=== PATIENT | male | born 1985 | race Caucasian/White ===

== ENCOUNTER → 2017-09-23 14:35 | Outpatient (CLI) | payer OTHER, SELFPAY ==
--- NOTE | 2017-09-23 15:00 | RAD_ITS ---
STUDY: X-RAY - LUMBAR SPINE REASON FOR EXAM: Male, 31 years old. Injury. Pain. TECHNIQUE: 3 view(s) of the lumbar spine were obtained. COMPARISON: None FINDINGS: Normal lumbar lordosis. There is no substantial scoliosis. There is a normal alignment of the vertebrae. Normal vertebral bodies and endplates. Normal disc space heights. There is no demonstrated fracture. The soft tissue structures are unremarkable. RAD/Lumbar Spine 2 or 3 Views IMPRESSION: Normal x-ray examination of the lumbar spine. Electronically Signed: Nic Ruelas MD at 15:55 EDT , Service support ,
== END ==
DX: S33.5XXA Sprain of ligaments of lumbar spine, initial encounter (principal)
CPT/HCPCS: 72100

== ENCOUNTER 2017-11-03 10:11 | Emergency (ER) | payer OTHER, SELFPAY ==
[2017-11-03 10:12] VITALS: BP 127/67; PULSE 56; RESP 26; TEMP 36.7; O2SAT 100; BMI 32.4
--- NOTE | 2017-11-03 10:42 | EKG12_ITS ---
Test Reason : SOB Blood Pressure : / mmHG Vent. Rate : 048 BPM Atrial Rate : 048 BPM P-R Int : 136 ms QRS Dur : 098 ms QT Int : 470 ms P-R-T Axes : 054 054 041 degrees QTc Int : 419 ms Sinus bradycardia Otherwise normal ECG Confirmed by ADOLFO MERRITT, RADHA ([id number]), communications editor VIVIANA CONNORS ([id number] on 11/05/2017 1:39:00 PM Referred By: Subha Rachel Confirmed By:RADHA MATA MD
[2017-11-03 11:07] LABS: Absolute Lymphocyte Count 2.32 X10^3/ul (0.83-4.51); Absolute Neutrophil Count 2.5 X10^3/uL (2.0-7.7); Basophil# 0.03 X10^3/uL; Basophil% 0.6 % (0-1); Eosinophil# 0.07 X10^3/uL; Eosinophils% 1.3 % (0-5); Hematocrit 38.4 % (40-54); Hemoglobin 13.1 g/dl (13.0-16.5); Lymphocyte # 2.32 X10^3/ul (4.0); Lymphocyte % 42.7 % (19-41); Mean Corp Hgb Conc 34.1 g/gl (32-36); Mean Corpuscular Hgb 29.9 pg (27.0-32.0); Mean Corpuscular Volume 87.7 fL (80-94); Mean Platelet Vol. 10.2 fl (6.2-12.0); Monocyte# 0.47 X10^3/uL; Monocyte% 8.7 % (0-10); Neutrophil # 2.53 X10^3/uL (2.7-7.7); Neutrophil % 46.5 % (47-70); Platelet Count 205 K/mm3 (150-450); RBC Distribution Width CV 13.2 % (11.6-14.6); RBC Distribution Width SD 41.9 fl (35.1-43.9); Red Blood Count 4.38 M/mm3 (4.6-6.2); White Blood Count 5.4 K/mm3 (4.4-11.0)
[2017-11-03 11:09] LABS: POSITIVE COUNT NO; POSITIVE DIFFERENTIAL NO; POSITIVE MORPHOLOGY NO
[2017-11-03 11:11] VITALS: PULSE 65; RESP 20
[2017-11-03] MEDS: Albuterol 2.5 MG/3 ML VIAL.NEB. INHALATION (11:11)
[2017-11-03] MEDS: Ipratropium/Albuterol Sulfate 3 ML AMPUL.NEB INHALATION (11:11)
[2017-11-03 11:19] LABS: Anion Gap 9 (5-15); BUN 15 mg/dL (7-18); BUN/Creat Ratio 15.9 RATIO (10-20); Calcium,Total 9.1 mg/dL (8.5-10.1); Chloride 108 mmol/L (98-107); Creatinine, Serum 0.94 mg/dL (0.70-1.30); EST Glomerular Filtration Rate 98 mL/min (>60); Est Glom Filt Rate - Afr Amer 119 mL/min (>60); Estimated Creatinine Clearance 123.83 ml/min; Glucose 87 mg/dL (74-106); Potassium 3.2 mmol/L (3.5-5.1); Sodium Level 141 mmol/L (136-145)
[2017-11-03 11:42] LABS: D-Dimer Quantitative (DVT/PE) < 0.27 FEU/ug/m (0.27-0.49)
[2017-11-03] MEDS: 0.9% Normal Saline 1,000 ML 999 ML IV (11:48)
--- NOTE | 2017-11-03 12:22 | RAD_ITS ---
STUDY: X-RAY CHEST REASON FOR EXAM: Male, 31 years old. Shortness of breath and cough TECHNIQUE: PA and lateral views of the chest. COMPARISON: 03/27/2017 FINDINGS: EKG leads overlie the chest The lungs are clear and expanded. There is no demonstrated pleural abnormality. Normal size heart. Normal mediastinum and niko. Normal visualized pulmonary arteries. Normal visualized aortic arch and descending thoracic aorta. Normal visualized thoracic spine. Normal visualized ribs, clavicles, and shoulders. There is no demonstrated abnormality of the visualized soft tissue structures of the upper abdomen. RAD/Chest PA and Lateral IMPRESSION: Normal x-ray examination of the chest. Electronically Signed: Alex Arriaga MD at 12:52 EDT , Service support ,
--- NOTE | 2017-11-03 13:29 | ED.VISSUMM ---
- ER Visit Summary Date of Service: 11/03/17 Chief Complaint: [Shortness of breath] History of Present Illness: The patient is a 31 M [presents the emergency department with shortness of breath. It started yesterday. He has had a dry cough. No fevers or chills. He has had some body aches. He has felt a little lightheaded. No wheezing. He does have a history of asthma. He has a history of a pituitary adenoma as well as hernia surgery. He has no primary care doctor at this time. He has had similar episodes in the past with humidity but is never been this bad] Physical Examination: [] WN WD NAD PERRL EOMI MMM NECK supple and nontender, no masses RRR no murmur rub or gallop, no peripheral edema, symmetric radial pulses CTAB no respiratory distress ABDOMEN is soft and nontender, normal bowel sounds, no distension, no rebound or guarding SKIN is warm and dry no rashes Alert and Oriented x3, CN II-XII in tact, no motor or sensory deficits, gait normal No lymphadenopathy Test Results: [] Emergency Department Course and Treatment: [EKG is sinus bradycardia at a rate of 48. Chest x-ray is unremarkable screening labs are unremarkable d-dimer is normal. Patient's pulse ox is 99% is in no respiratory distress he has a respiratory rate of 18 on my reevaluation. I think he can safely be discharged home. I will give him prednisone and albuterol to treat possible asthma. He was given precautions for which to return and will follow up with a primary care physician.] Treatment Plan: [] Disposition: [Discharge] Impression: [Dyspnea] This note was generated with [employer] dictation software. It may contain incorrect words, spelling, and punctuation that were not noted in review of the chart prior to signing ED Disposition - Plan for ED Patient: Chief Complaint: Shortness of Breath Referrals: Care Physician,No Primary [Primary Care Provider] -
--- NOTE | 2017-11-03 13:32 | ED.DEP ---
ED Disposition - Plan for ED Patient: Chief Complaint: Shortness of Breath Instructions: ED Dyspnea Shortness of Breath Prescriptions: Albuterol Inhaler [Ventolin Hfa] 1 puff INHALATION Q4H PRN PRN #1 inhaler PRN Reason: Shortness Of Breath Prednisone [Deltasone] 40 mg PO DAILY #10 tablet Referrals: Stevenson Rojas MD [STAFF PHYSICIAN] - 3-5 Days
[2017-11-03 13:44] VITALS: BP 102/76; PULSE 61; RESP 17; O2SAT 97
== END 2017-11-03 13:46 | disposition home or self-care (01) ==
PROVIDERS: Emergency Provider Emergency Medicine
DX: R06.00 Dyspnea, unspecified (principal); M79.1 Myalgia; J45.909 Unspecified asthma, uncomplicated; R00.1 Bradycardia, unspecified
CPT/HCPCS: 71046; 80048; 84484; 85025; 85379; 93005; 94640; 96360; 99284; J7030; A4216

== ENCOUNTER 2017-11-10 13:39 | Emergency (ER) | payer OTHER, SELFPAY ==
[2017-11-10 13:40] VITALS: BP 135/83; PULSE 93; RESP 28; TEMP 36.8; O2SAT 100; BMI 32.5
[2017-11-10 13:50] VITALS: PULSE 75; RESP 16; O2SAT 98
--- NOTE | 2017-11-10 14:03 | EKG12_ITS ---
Test Reason : SOB Blood Pressure : / mmHG Vent. Rate : 063 BPM Atrial Rate : 063 BPM P-R Int : 136 ms QRS Dur : 100 ms QT Int : 442 ms P-R-T Axes : 058 076 052 degrees QTc Int : 452 ms Normal sinus rhythm Normal ECG Confirmed by ADOLFO MERRITT, RADHA ([id number]), city editor VIVIANA CONNORS ([id number]) on 11/11/2017 12:01:34 PM Referred By: ALFONSO Confirmed By:RADHA MATA MD
[2017-11-10 14:13] LABS: Absolute Lymphocyte Count 2.01 X10^3/ul (0.83-4.51); Absolute Neutrophil Count 3.7 X10^3/uL (2.0-7.7); Basophil# 0.05 X10^3/uL; Basophil% 0.8 % (0-1); Eosinophil# 0.06 X10^3/uL; Eosinophils% 0.9 % (0-5); Hematocrit 40.8 % (40-54); Hemoglobin 14.3 g/dl (13.0-16.5); Lymphocyte # 2.01 X10^3/ul (4.0); Lymphocyte % 31.4 % (19-41); Mean Corpuscular Hgb 30.3 pg (27.0-32.0); Mean Corpuscular Volume 86.4 fL (80-94); Mean Platelet Vol. 10.2 fl (6.2-12.0); Monocyte# 0.54 X10^3/uL; Monocyte% 8.4 % (0-10); Neutrophil # 3.74 X10^3/uL (2.7-7.7); Neutrophil % 58.3 % (47-70); Platelet Count 256 K/mm3 (150-450); RBC Distribution Width CV 13.2 % (11.6-14.6); RBC Distribution Width SD 40.7 fl (35.1-43.9); Red Blood Count 4.72 M/mm3 (4.6-6.2); White Blood Count 6.4 K/mm3 (4.4-11.0)
[2017-11-10 14:14] LABS: POSITIVE COUNT NO; POSITIVE DIFFERENTIAL NO; POSITIVE MORPHOLOGY NO
[2017-11-10 14:26] VITALS: O2SAT 98
--- NOTE | 2017-11-10 14:27 | RAD_ITS ---
STUDY: X-RAY CHEST REASON FOR EXAM: Male, 31 years old. Chest pain and shortness of breath. History of asthma. TECHNIQUE: PA and lateral views of the chest. COMPARISON: Comparison is made with prior examination dated November 03, 2017. FINDINGS: EKG electrodes are seen. Hyperinflation. The knot was evidence of focal increased markings in the anterior aspect of the lingular segment of the left upper lobe suggestive of an early infiltrate. There is no demonstrated pleural abnormality. Normal size heart. Normal mediastinum and niko. Normal visualized pulmonary arteries. Normal visualized aortic arch and descending thoracic aorta. Normal visualized thoracic spine. Normal visualized ribs, clavicles, and shoulders. There is no demonstrated abnormality of the visualized soft tissue structures of the upper abdomen. RAD/Chest PA and Lateral IMPRESSION: Findings suggestive of an early infiltrate in the anterior aspect of the lingular segment of the left upper lobe. Electronically Signed: Josue Padilla MD at 14:46 EDT Tel [phone], Service support ,
[2017-11-10 14:29] LABS: Anion Gap 12 (5-15); BUN 13 mg/dL (7-18); Calcium,Total 9.8 mg/dL (8.5-10.1); Chloride 109 mmol/L (98-107); Creatinine, Serum 1.18 mg/dL (0.70-1.30); EST Glomerular Filtration Rate 76 mL/min (>60); Est Glom Filt Rate - Afr Amer 92 mL/min (>60); Estimated Creatinine Clearance 98.64 ml/min; Glucose 88 mg/dL (74-106); Potassium 3.4 mmol/L (3.5-5.1); Sodium Level 140 mmol/L (136-145)
--- NOTE | 2017-11-10 14:40 | ED.VISSUMM ---
- ER Visit Summary Date of Service: 11/10/17 Chief Complaint: Shortness of breath History of Present Illness: The patient is a 31 M who presents with shortness of breath. He initially began to feel short of breath about 1 week ago. He was seen in the emergency department at that time. He had workup including EKG laboratory studies and a chest x-ray. He states he has now developed left lower chest pain. He also has developed a productive cough. He denies fevers nausea vomiting congestion rhinorrhea sore throat. He reports a history of asthma but no other medical history. Physical Examination: Afebrile vitals are unremarkable Moist mucous membranes Heart regular rate and rhythm Lungs are clear without rales rhonchi wheezes Abdomen soft nontender Alert Test Results: EKG shows normal sinus rhythm at a rate of 63 similar to prior. CBC BMP notable for potassium 3.4 creatinine 1.18. Troponin is negative. Chest x-ray shows findings suggestive of early infiltrate in the lingula of the left lung. Emergency Department Course and Treatment: Patient has stable vital signs normal EKG unremarkable laboratory studies. He has developed productive cough and complains of left-sided chest pain with suggestion of early infiltrate. He will be treated for community-acquired pneumonia. He was given a prescription for azithromycin. Treatment Plan: [] Disposition: Discharge Impression: Community acquired pneumonia This note was generated with [employer] dictation software. It may contain incorrect words, spelling, and punctuation that were not noted in review of the chart prior to signing ED Disposition - Plan for ED Patient: Chief Complaint: Shortness of Breath Referrals: Care Physician,No Primary [Primary Care Provider] -
--- NOTE | 2017-11-10 14:54 | ED.DEP ---
ED Disposition - Plan for ED Patient: Chief Complaint: Shortness of Breath Instructions: ED Pneumonia Adult Prescriptions: Azithromycin [Zithromax Z-Ney] 250 mg PO UD #1 box Referrals: Care Physician,No Primary [Primary Care Provider] - Stevenson Rojas MD [STAFF PHYSICIAN] -
[2017-11-10 15:13] VITALS: BP 120/83; PULSE 55; RESP 14; O2SAT 98
--- NOTE | 2017-11-11 10:52 | CM.ED ---
ED CALLBACK: Follow-up call to patient. Patient states he is currently at Dr. Rojas's office, waiting for appointment. He has started his antibiotic and states he is feeling a little better. Patient denies further questions/concerns at this time.
== END 2017-11-10 15:14 | disposition home or self-care (01) ==
PROVIDERS: Emergency Provider Emergency Medicine
DX: J18.9 Pneumonia, unspecified organism (principal); J45.909 Unspecified asthma, uncomplicated
CPT/HCPCS: 71046; 80048; 84484; 85025; 93005; 99284